=== PATIENT | female | born 1995 | race Hispanic/Latino ===

== ENCOUNTER 2020-04-28 22:52 | Emergency (ER) | payer OTHER ==
--- OUTSIDE RECORDS SUMMARY | 2020-04-28 23:08 | XMS REPORT | Summary of Care ---
:1995 Author Organization [facility] Address [address] [place] [id number] Care Team Providers Name Role Phone Stephen Gonzalez Primary Care Provider Allyson rFanco MD Insurance Hmo Reason for Visit Reason Comments New OB Visit Encounter Details Date Type Department Care Team Description [facility] upervision of high risk , antepartum (Primary Dx); Visit [place] [facility] Short interval between pregnancies affec ting in first trimester, antepartum; [address] [place] [address] History of pre-eclampsia in prior , currently in first trimester; [place], [place] Previous delivery affecting pre gnancy, antepartum; [address] [place], [place]; [phone] Overweight (BMI 25.0-29.9); [phone] BMI 27.0-27.9,adult Allergies No Known Allergiesdocumented as of this encounter (statuses as of 03/26/2020) Medications Medication Sig Dispensed Refills Start Date End Date Status levonorgestrel-ethi Take 1 tablet 1 Package 2 12/31/2019 Active nyl estradiol by mouth (SRONYX) 0.1-20 daily. mg-mcg per tabletIndications: Other general counseling and advice for contraceptive management vit Take 1 Packet 30 Each 6 03/26/2020 Ac tive 65-qaah-hnkhp-dha by mouth (SELECT-OB + DHA) daily. 29 mg iron-1 mg -250 mg combo packIndications: Supervision of high risk , antepartum vitamin Take 1 tablet 100 tablet 3 11/03/2019 020 Discontinued w/FA by mouth tabletIndications: daily. S/P docusate calcium Take 1 60 capsule 1 11/03/2019 03/26/2020 Discontinued 240 mg capsule by capsuleIndications: mouth once S/P daily as needed for Constipation. ferrous sulfate 325 Take 1 tablet 60 tablet 2 11/03/201903/26 Discontinued mg (65 mg iron) by mouth 2 tabletIndications: (two) times S/P daily. ibuprofen 600 mg Take 1 tablet 60 tablet 1 11/03/2019 03/26/20 20 Discontinued tabletIndications: by mouth S/P every 6 (six) hours as needed (Pain). Take with food or milk. norethindrone 0.35 Take 1 tablet 3 Package 0 11/03/20192019 Discontinued mg by mouth tabletIndications: daily. S/P HYDROcodone-acetami Take 1 tablet 20 tablet 0 11/03/201903/26 Discontinued nophen 5-325 mg by mouth tabletIndications: every 6 (six) S/P hours as needed (Pain scale above 4) for up to 20 doses. documented as of this encounter (statuses as of 03/26/2020) Active Problems Problem Noted Date Short interval between pregnancies affecting in first trimester, 03/26/2020 antepartum History of pre-eclampsia in prior , currently in first 03/26/2020 trimester Previous delivery affecting , antepa rtum 03/26/2020 [place] 03/26/2020 Well woman exam 12/31/2019 Other general counseling and advice for contraceptive management 12/31/2019 Elevated blood pressure reading without diagnosis of h ypertension 10/23/2019 BMI 27.0-27.9,adult 10/19/2019 Supervision of high risk , antepartum 019 Estimated Date of Delivery Comments Yes 11/06/2020 Based on last menstr ual period of 01/31/2020 (Approximate) documented as of this encounter (statuses as of 03/26/2020) Resolved Problems Problem Noted Date Resolved Date Routine follow-up 12/10/2019 12/31/2019 Pre-eclampsia in period 11/12/201912/10 38 weeks gestation of 11/01/2019 12/10/19 20 Nausea and vomiting during prior to 22 weeks 05/1512/10/2019 gestation Primigravida in third trimester 04/17/2019 12/10/19 20 Vaginal bleeding during 03/28/20192019 Susceptible to varicella (non-immune), currently 03/20/2019 Overview: Address pp Supervision of high-risk 08/07/201803/20 Vaginal bleeding in 08/07/2018 03/20/2019 OCP (oral contraceptive pills) initiation 12/30/2014 08/07/2018 Dysmenorrhea 12/30/2014 03/20/2019 Need for vaccination against human papillomavirus 12/30/2014 08/07/2018 Pain pelvic 12/30/2014 03/20/2019 Encounter for routine gynecological examination 12/27/2014 08/07/2018 Overview: ICD10 Diagnosis Term 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 [employer]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 Utility documented as of this encounter (statuses as of 03/26/2020) Immunizations Name Administration Dates Next Due HEPATITIS A 04/16/2008, 02/23/2006 HPV 12/27/2014, 11/04/2009, 09/04/2009 Influenza Virus Vaccine Quad .5 mL IM 6+ 09/05/2019 MO MMR 04/16/2008 Meningococcal Polysaccharide (groups A, 04/16/2008 C, Y and W-135) conjugate vaccine (MCV4P) Tdap 09/05/2019, 09/04/2009 Varicella (varivax)(chicken pox) 04/16/2008 documented as of this encounter Social History Tobacco Use Types Packs/Day Years Used Date Never Smoker Smokeless Tobacco: Never Used Comments: denies smoke exposure Alcohol Use Drinks/Week oz/Week Comments No Estimated Date of Delivery Comments Yes 11/06/2020 Based on last menstr ual period of 01/31/2020 (Approximate) Sex Assigned at Date Recorded Not on file Job Start Date Occupation Industry Not on file Not on file Not on file Travel History Travel Start Travel End No recent travel history available. COVID-19 Exposure Response Date Recorded In the last month, have you been in contact with No / Unsure 03/26/2020 1:21 PM CDT someone who was confirmed or suspected to have Coronavirus / COVID-19? documented as of this encounter Last Filed Vital Signs Vital Sign Reading Time Taken Comments Blood Pressure 130/87 03/26/2020 1:23 PM CDT Pulse 84 03/26/2020 1:23 PM CDT Temperature 37 C (98.6 F) 03/26/2020 1:23 PM CDT Respiratory Rate 16 03/26/2020 1:23 PM CDT Oxygen Saturation - - Inhaled Oxygen Concentration - - Weight 65.9 kg (145 lb 4 oz) 03/26/2020 1:23 PM CDT Height 154.9 cm (5' 1") 03/26/2020 1:23 PM CDT Body Mass Index 27.44 03/26/2020 1:23 PM CDT documented in this encounter Progress Notes Dawn Gonzalez, MAITE - 03/26/2020 1:15 PM CDT Chief complaint: Chief Complaint Patient presents with New OB Visit HPI CC: Initial Visit Sarah Stephen is a 24 year old, , /White female. Patient's last menstrual period was 01/31/2020 (approximate). She is 7w6d with an intrauterine . Her Estimated Date of Delivery: 11/06/20. She is being seen today for her first obstetrical visit. Patient denies any complaints. She denies FM, contractions, LOF and bleeding today.Patient denies current or past physical, sexual or emotional abuse. OB History Para Term AB Living 3 1 1 1 1 SAB TAB Ectopic Multiple Live Births 1 0 1 # Outcome Date GA Lbr Sancho/2nd Weight Sex Delivery Anes PTL Lv 3 Current 2 Term 11/01/19 38w0d 5 lb 14.7 oz (2.685 kg) F , L Spinal N JABARI Complications: Other (See Comments) 1 SAB 08/10/18 10w0d Histories OB History Para Term AB Living 3 1 1 1 1 SAB TAB Ectopic Multiple Live Births 1 0 1 # Outcome Date GA Lbr Sancho/2nd Weight Sex Delivery Anes PTL Lv 3 Current 2 Term 11/01/19 38w0d 5 lb 14.7 oz (2.685 kg) F , L Spinal N JABARI Complications: Other (See Comments) 1 SAB 08/10/18 10w0d Past Medical History: Diagnosis Date Dysmenorrhea 12/30/2014 Pre-eclampsia during in third trimester, antepartum 11/12/2019 Family History Problem Relation Age of Onset Hypertension Mother No Significant Medical Problems Sister No Significant Medical Problems Brother No Significant Medical Problems Maternal Grandmother No Significant Medical Problems Maternal Grandfather No Significant Medical Problems Paternal Grandmother No Significant Medical Problems Paternal Grandfather Arthritis NoFHx defects NoFHx Breast Cancer NoFHx Colon Cancer NoFHx Ovarian Cancer NoFHx Uterine Cancer NoFHx Cancer NoFHx Depression NoFHx Diabetes NoFHx Genetic NoFHx Heart NoFHx High cholesterol NoFHx Mental retardation NoFHx Neurological NoFHx Osteoporosis NoFHx Psychiatry NoFHx Other - see comments NoFHx Asthma NoFHx Family Status Relation Name Status Mo Alive Fa (Not Specified) unknown Sis Alive Bro Alive MGMo Alive MGFa Alive PGMo Alive PGFa Alive NoFHx (Not Specified) Past Surgical History: Procedure Laterality Date SECTION N/A 11/01/2019 Surgeon: Wen Schwarz MD; Location: Labor and Delivery - [place] Social History Socioeconomic History Marital status: Single Spouse name: Not on file Number of children: 0 Years of education: Not on file Highest education level: Not on file Occupational History Not on file Social Needs Financial resource strain: Not on file Food insecurity: Worry: Not on file Inability: Not on file Transportation needs: Medical: Not on file Non-medical: Not on file Tobacco Use Smoking status: Never Smoker Smokeless tobacco: Never Used Tobacco comment: denies smoke exposure Substance and Sexual Activity Alcohol use: No Drug use: No Sexual activity: Yes Partners: Male control/protection: None Comment: 03/11/2020 Lifestyle Physical activity: Days per week: Not on file Minutes per session: Not on file Stress: Not on file Relationships Social connections: Talks on phone: Not on file Gets together: Not on file Attends faith service: Not on file Active member of club or organization: Not on file Attends meetings of clubs or organizations: Not on file Relationship status: Not on file Intimate partner violence: Fear of current or ex partner: Not on file Emotionally abused: Not on file Physically abused: Not on file Forced sexual activity: Not on file Other Topics Concern Service Not Asked Blood Transfusions No Caffeine Concern Not Asked Occupational Exposure Not Asked Hobby Hazards Not Asked Sleep Concern Not Asked Stress Concern Not Asked Weight Concern Not Asked Special Diet Not Asked Back Care Not Asked Exercise Not Asked Bike Helmet Not Asked Seat Belt Not Asked Self-Exams Not Asked Social History Narrative No domestic violence or abuse Patient lives with spouse and mother- in -law and baby. Has one inside dog on occasion. Muslim preference Islam. Social History Substance and Sexual Activity Sexual Activity Yes Partners: Male control/protection: None Comment: 03/11/2020 Genetic Screen Autism / Mental Retardation: No Aden Disease: No Congenital Heart Defect: No Cystic Fibrosis: No Down Syndrome: No Familial Dysautonomia: No Hemophilia or other Blood Disorders: No [place] Chorea: No Maternal Metabolic Disorder--specify (eg. Type 1 Diabetes, PKU): No Muscular Dystrophy: No Neural Tube Defect: No Recurrent Loss or a Stillbirth: No Sickle Cell Disease or Trait: No Elijah Sachs: No Teratological Substances (specify type & strength/dose) since LMP: No Thalassemia: No Other Inherited Genetic or Chromosomal Disorder (specify): No No Significant History of Genetic Disorders: No Significant History of Genetic Disorders Labs Labs are pending. Radiology No new radiology. Allergies Sarah has No Known Allergies. Medications Sarah has a current medication list which includes the following prescription(s): vit 11-gusr-rebbu-dha and levonorgestrel-ethinyl estradiol. Review of Systems Constitutional: Negative for activity change, appetite change, fatigue, unexpected weight change, weight gain and weight loss. HENT: Negative for sore throat. Eyes: Negative for visual disturbance. Respiratory: Negative for cough and shortness of breath. Breasts: Negative for discharge, mass, pain and unequal size. Cardiovascular: Negative for chest pain, palpitations and leg swelling. Gastrointestinal: Negative. Negative for abdominal pain, anal bleeding, blood in stool, constipation, diarrhea, nausea, rectal pain and vomiting. Genitourinary: Negative for bladder incontinence, dysuria, urgency, flank pain, vaginal bleeding, vaginal discharge, genital sores, vaginal pain and pelvic pain. Skin: Negative for color change and rash. Neurological: Negative. Negative for dizziness, syncope and headaches. Psychiatric/Behavioral: Negative for confusion, self-injury and sleep disturbance. The patient is not nervous/anxious. Hematological: Negative for cold intolerance and heat intolerance. Endocrine: Negative for hair loss, cold intolerance, heat intolerance, weight gain and weight loss. BP 130/87 (BP Location: Right arm, Patient Position: Sitting, BP CUFF SIZE: Adult Medium) | Pulse 84 | Temp 37 C (98.6 F) (Oral) | Resp 16 | Ht 5' 1" (1.549 m) | Wt 145 lb 4 oz (65.9 kg) | LMP 01/31/2020 (Approximate) | BMI 27.44 kg/m Pregravid BMI: 27.4 Physical Exam Vitals reviewed. Constitutional: She is oriented to person, place, and time. She appears well- developed, well-nourished and well-groomed. She has no deformities. Neck: No tenderness and no mass. No thyroid nodules and no thyromegaly palpated. Cardiovascular: Regular rate and rhythm. No murmur auscultated. Pulmonary/Chest: Breath sounds clear to auscultation. Normal inspiratory effort. Abdominal: Abdomen is soft. No mass palpated. No tenderness present. There is no guarding. Neuro/Psychiatric: She has a normal mood and affect. She is oriented to person, place, and time. Skin: Skin normal. No lesion and no rash present. Breast: Right breast exhibits no mass, no nipple discharge and no tenderness. Left breast exhibits no mass, no nipple discharge and no tenderness. Normal left breast and normal right breast Rectal: normal rectum External genitalia: Normal external genitalia appropriate for age. Normal hair distribution. No labial lesion. Vagina:Normal vagina. No lesion inspected. No abnormal vaginal discharge found. Cervix: Normal cervix. No lesion. No tenderness and no discharge present. Closed/50/-3 Uterus: Uterus is normal size and non-tender. 6cm Normal uterus Adnexa: Right adnexa without tenderness or mass. Left adnexa without tenderness or mass. Normal leftadnexa and normal right adnexa Anus/perineum: Normal perineum. PHYSICAL: General Exam: HEENT: Normal Thyroid: Normal Lymph Node: Normal Neurological: Normal Abdomen: Normal Skin: Normal Extremities: Normal Pelvic Exam: Vulva: Normal Vagina: Normal Cervix: Normal Closed/50/-3 Uterus: 6cm Weeks Adnexa: Normal Spines: Average Sacrum: Concave Subpubic Arch: Normal Assessment/Plan Supervision of high risk , antepartum (primary encounter diagnosis) Short interval between pregnancies affecting in first trimester, antepartum History of pre-eclampsia in prior , currently in first trimester Previous delivery affecting , antepartum [place] Comment: Routine Visit Plan: POCT URINALYSIS W SPECIFIC GRAVITY, POCT TEST, POCT URINALYSIS W SPECIFIC GRAVITY, GLUCOSE 1 HOUR POST PRANDIAL, CBC WITH DIFF, GC & CHLAMYDIA AMPLIFIED ASSAY, HEPATITIS B SURFACE ANTIGEN, HIV 1/2 AG-AB WITH REFLEX, POCT URINALYSIS W SPECIFIC GRAVITY, WORKUP, BLOOD BANK, RUBELLA SCREEN (VERONICA) IGG, GALV ONLY - SYPHILIS IGG/IGM, URINE CULTURE, VZV ANTIBODY SCREEN, vit 84-qkrz-obkpf-dha (SELECT-OB + DHA) 29 mg iron-1 mg -250 mg combo pack, WORKUP, BLOOD BANK, CBC WITH DIFF, GC & CHLAMYDIA AMPLIFIED ASSAY, HEPATITIS B SURFACE ANTIGEN, HIV 1/2 AG-AB WITH REFLEX, RUBELLA SCREEN (VERONICA) IGG, GALV ONLY - SYPHILIS IGG/IGM, URINE CULTURE, VZV ANTIBODY SCREEN, CBC WITH DIFFERENTIAL Denies zika virus risk, signs and symptoms such as fever,rash,joint pain, conjunctivitis (red eyes), muscle pain, headaches; outside [place] travel to areas affected by zika, and FOB exposure to zika.Educated on use of mosquito repellent. Overweight (BMI 25.0-29.9) BMI 27.0-27.9,adult Comment: BMI: 27.44 Plan: Patient encouraged to limit weight gain and advised to eat healthy diet, fruits, vegetables, increased fiber and water intake and protein low in fat. Encouraged exercise for 30 min everyday; begin regimen with caution to prevent injury. Encouraged to decrease BMI to <25. Return to clinic in 4 weeks via tele health. Discussed treatment options. Medications as ordered. Reviewed patient instructions and provided printed copy. This visit did not involve counseling and coordination that comprised more than 50% of the visit time. MAITE Penny 03/26/2020 2:30 PM Myesha Bhakta RN - 03/26/2020 1:15 PM CDTPatient is 24 year old female here for current . Patient is . 1) Previous delivery methods: 2) Patient is not experiencing cramping 3) Patient is not experiencing bleeding. 4) LMP 01/31/2020 5) Last Pap was: 08/07/2018 Results: Negative 6) Have you had a flu vaccine this season? NO 7) PPD candidate? no 8) Patient denies any complaints 9) Patient denies history of physical, emotional, or sexual abuse. Patient states she currently feels safe at home. New ob packet given and discussed with patient. MYESHA BHAKTA RN 03/26/2020 1:47 PM documented in this encounter Plan of Treatment Date Type Specialty Care Team Description 04/24/2020 Telemedicine Visit [facility] Deonte Gonzalez nanettea R, RESIDENTIAL CAREGIVER [address] [address] [phone] Name Type Priority Associated Diagnoses Date/Ti me GC & CHLAMYDIA LAB Routine Supervision of high risk 0 03/26/2020 2:12 PM CDT AMPLIFIED ASSAY , antepartum URINE CULTURE LAB Routine Supervision of high risk 2:12 PM CDT , antepartum Name Type Priority Associated Diagnoses Order S chedule POCT URINALYSIS W LAB Routine Supervision of high 20 Occurrences starting SPECIFIC GRAVITY risk , 03/26/20 20 until antepartum 01/20/2021, 1 c ompleted GLUCOSE 1 HOUR POST LAB Routine Supervision of high O rdered: 03/26/2020 PRANDIAL risk , antepartum CBC WITH DIFF LAB Routine Supervision of high Expecte d: 03/26/2020, risk , Expires: antepartum GC & CHLAMYDIA AMPLIFIED LAB Routine Supervision of h igh Expected: 03/26/2020, ASSAY risk , Expires: antepartum HEPATITIS B SURFACE LAB Routine Supervision of high E xpected: 03/26/2020, ANTIGEN risk , Expires: antepartum HIV 1/2 AG-AB WITH REFLEX LAB Routine Supervision of high Expected: 03/26/2020, risk , Expires: antepartum POCT URINALYSIS W LAB Routine Supervision of high 20 Occurrences starting SPECIFIC GRAVITY risk , 03/26/20 20 until antepartum 01/20/2021 WORKUP, BLOOD LAB Routine Supervision of [facility] Expected: 03/26/2020, BANK risk , Expires: antepartum RUBELLA SCREEN (VERONICA) LAB Routine Supervision of [facility] h Expected: 03/26/2020, IGG risk , Expires: antepartum GALV ONLY - SYPHILIS LAB Routine Supervision of high Expected: 03/26/2020, IGG/IGM risk , Expires: antepartum URINE CULTURE LAB Routine Supervision of high Expecte d: 03/26/2020, risk , Expires: antepartum VZV ANTIBODY SCREEN LAB Routine Supervision of high E xpected: 03/26/2020, risk , Expires: antepartum CBC WITH DIFFERENTIAL LAB Routine Supervision of high Ordered: 03/26/2020 risk , antepartum Health Maintenance Due Date Last Done Comments MENINGOCOCCAL B VACCINES (1 12/09/2020 Post poned from of 2 - Risk Bexsero 2-dose 07/13 ( or series) ) VARICELLA VACCINES (2 of 2 12/10/2020 04/16/2008 Postp oned from - 2-dose childhood series) 07/09 ( or ) CHLAMYDIA SCREENING 12/31/2020 12/31/2019, 10/23/2019, 03/20/2019, Additional history exists PAP SMEAR 08/07/2021 08/07/2018 DTaP,Tdap,and Td Vaccines 09/05/2029 09/05/2019, 09/04/2009 (3 - Td) HPV VACCINES Completed 12/27/2014, 11/04/2009, 09/04/2009 INFLUENZA VACCINE Completed 09/05/2019 PNEUMOCOCCAL 0-64 YEARS Aged Out No longe r eligible COMBINED SERIES based on patient 's age to complete this topic documented as of this encounter Procedures Procedure Name Priority Date/Time Associated Diagnosis Comme nts POCT URINALYSIS Routine 03/26/2020 1:36 Supervision of high R esults for this PM CDT risk , procedure ar e in antepartum the results section. POCT TEST Routine 03/26/2020 1:35 Supervision of [facility] Results for this PM CDT risk , procedure ar e in antepartum the results section. documented in this encounter Results POCT URINALYSIS W SPECIFIC GRAVITY (03/26/2020 1:36 PM CDT) Pathologist Sig nature POCT U SP GRAV . 1.005 - 1.025 mg/dl POCT PH U 8 5 - 8 mg/dl POCT U LEUK EST NEGATIVE Negative - Negative POCT U NIT NEGATIVE Negative - Negative POCT U PROT TRACE Negative - Negative POCT U GLU NEGATIVE Negative - Negative POCT U KETONE NEGATIVE Negative - Negative POCT U UROBILI . 0.2 - 1 mg/dl POCT U BILI . Negative - Negative POCT U BLD NEGATIVE Negative - Negative POCT U COLOR POCT U APPEAR Specimen Urine - URINE, CLEAN CATCH POCT TEST (03/26/2020 1:35 PM CDT) Pathologist Sig nature POCT PREG Positive On board controls acceptable Yes with C Line POCT PREG LOT # POCT PREG TEST DATE Specimen Urine - URINE, CLEAN CATCH documented in this encounter Visit Diagnoses Diagnosis Supervision of high risk , ante - Primary Short interval between pregnancies affec ting in first trimester, antepartum History of pre-eclampsia in prior pregna ncy, currently in first trimester Previous delivery affecting pre gnancy, antepartum Previous delivery, antepartum c ondition or complication Multiparity Overweight (BMI 25.0-29.9) Overweight BMI 27.0-27.9,adult Body Mass Index 27.0-27.9, adult documented in this encounter Insurance Payer Benefit Plan / Subscriber ID Effective Phone Address T e Group Dates MEDICAID MEDICAID PENDING [id number] [place] [address] documented as of this encounter Advance Directives Name Relationship Healthcare Agent Relationship Co mmunication Renea Stephen Mother Primary healthcare agent [email or web address]
--- OUTSIDE RECORDS SUMMARY | 2020-04-28 23:08 | XMS REPORT | Continuity of Care Document ---
:1995 Author Organization [facility] t Address [address] [place] [address] Care Team Providers Name Role Phone Tay Rivas MD Attending Clinician Stephen Sher Attending Clinician Payers Payer Name Policy Type Policy Number Effective Date Expiration Date S ource Problems This patient has no known problems. Allergies, Adverse Reactions, Alerts Allergy Allergy Status Severity Reaction(s) Onset Inactive Treating Comm ents Source Name Type Date Date Clinician No Known DA Active [facility] 07-25 [facility] Medications This patient has no known medications. Procedures This patient has no known procedures. Encounters Start End Encounter Admission Attending Care Care Encounter Source Date/Time Date/Time Type Type Clinicians Facility Department ID 2020-04-23 2020-04-23 Emergency Evelyn, TRAUMA [id number] 01:21:46 05:33:00 Sinan Cross [place] [id number] 2020-03-26 2020-03-26 MARY Justin [id number] 13:15:55 14:10:06 Roshunda R METAL FURNITURE REPAIRER [id number] Visit REGIONAL [id number] MATERNAL [id number] & CHILD [address] [place] [address] - [place] Results This patient has no known results.
--- OUTSIDE RECORDS SUMMARY | 2020-04-28 23:09 | XMS REPORT | Summary of Care ---
:1995 Author Organization [facility] - Health Address [address] [place], [place] [id number] Care Team Providers Name Role Phone Stephen Gonzalez Primary Care Provider Allyson Franco MD Insurance Hmo Encounter Details Date Type Department Care Team Description 03/26/2020 Orders Only [facility] Doctor Unassigned, No [address] [place] [facility] [place] [address] [address] [place] [address] Allergies No Known Allergiesdocumented as of this encounter (statuses as of 03/26/2020) Medications Medication Sig Dispensed Refills Start Date End Date Status levonorgestrel-ethinyl Take 1 tablet by 1 Package 2 12/31/2019 Active estradiol (SRONYX) mouth daily. 0.1-20 mg-mcg per tabletIndications: Other general counseling and advice for contraceptive management vit Take 1 Packet by 30 Each 6 03/26/2020 Active 46-stgj-dyjdt-dha mouth daily. 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 documented as of this encounter (statuses [...] of this encounter Last Filed Vital Signs Not on filedocumented in this encounter Plan of Treatment Date Type Specialty Care Team Description 04/24/2020 Telemedicine Visit OB Elviss Deonte Gonzalez R, DIGITAL MEDIA COORDINATOR [address] [employer], [place] [address] [phone] Health Maintenance Due Date Last Done Comments [...] Name Priority Date/Time Associated Diagnosis Comme nts REPORT OF Routine 03/26/2020 12:01 AM CDT documented in this encounter Results Not on filedocumented in this encounter Insurance Payer Benefit Plan Subscriber ID Effective Phone Address Typ e / Group Dates MEDICAID MEDICAID PENDING 2020-[address] P [place] [address] [id number] xxxxxxxxx 2014-Pres [phone] [address] 555 Medicaid ent [address] [place] [address] documented as of this encounter Advance Directives Name Relationship Healthcare Agent Relationship Co mmunication Renea Stephen Mother Primary healthcare agent [email or web address]
--- OUTSIDE RECORDS SUMMARY | 2020-04-28 23:09 | XMS REPORT | Summary of Care ---
:1995 Author Organization [facility] Address [address] [place] [id number] Care Team Providers Name Role Phone Stephen Gonzalez Primary Care Provider Allyson Franco MD Insurance Hmo Reason for Visit Reason Comments New OB Visit Encounter Details Date Type Department Care Team Description 03/26/2020 [facility] upervision of high risk , antepartum (Primary Dx); Visit [place] [facility] Short interval between pregnancies affec ting in first trimester, antepartum; [address] History of pre-eclampsia in prior , currently in first trimester; [place], [place] [place] Previous delivery affecting pre gnancy, antepartum; [address] [place], [place]; [phone] [address] Overweight (BMI 25.0-29.9); [phone] BMI 27.0-27.9,adult Allergies No Known Allergiesdocumented as of this encounter (statuses as of 03/26/2020) Medications Medication Sig Dispensed Refills Start Date End Date Status levonorgestrel-ethi Take 1 tablet 1 Package 2 12/31/2019 Active nyl estradiol by mouth (SRONYX) 0.1-20 daily. mg-mcg per tabletIndications: Other general counseling and advice for contraceptive management vit Take 1 Packet 30 Each 6 03/26/2020 Ac tive 37-tmri-dbjic-dha by mouth (SELECT-OB + DHA) daily. 29 [...] examination 12/27/2014 08/07/2018 Overview: ICD10 Diagnosis Term Epic Analyst Utility documented as of this encounter (statuses [...] Schwarz MD; Location: Labor and Delivery - [place] Social History Socioeconomic History Marital status: Single [...] file Gets together: Not on file Attends islam service: Not on file Active member of [...] baby. Has one inside dog on occasion. [employer] preference [employer]. Social History Substance and Sexual Activity Sexual Activity Yes Partners: Male control/protection: None Comment: 03/11/2020 Genetic Screen Autism / Mental Retardation: No Aden Disease: No Congenital Heart Defect: No Cystic Fibrosis: No Down Syndrome: No Familial Dysautonomia: No Hemophilia or other Blood Disorders: No [place] Chorea: No Maternal Metabolic Disorder--specify (eg. Type [...] list which includes the following prescription(s): vit 92-dpkj-roeyi-dha and levonorgestrel-ethinyl estradiol. Review of Systems Constitutional: [...] IGG/IGM, URINE CULTURE, VZV ANTIBODY SCREEN, vit 62-pmai-zimad-dha (SELECT-OB + DHA) 29 mg iron-1 mg [...] Visit OB [facility] Deonte Gonzalez nanettea R, STORE TEAM LEADER [address] [place] [address] [phone] Name Type Priority Associated Diagnoses Date/Ti me [...] 01/20/2021 WORKUP, BLOOD LAB Routine Supervision of [facility] h Expected: 03/26/2020, BANK risk , Expires: antepartum RUBELLA SCREEN ([place]) LAB Routine Supervision of [facility] h Expected: 03/26/2020, IGG risk , Expires: [...] POCT TEST Routine 03/26/2020 1:35 Supervision of [facility] Results for this PM CDT risk , [...] T e Group Dates MEDICAID MEDICAID PENDING 2020-[address] P[place] [address] documented as of this encounter Advance Directives Name Relationship Healthcare Agent Relationship Co mmunication Renea Stephen Mother Primary healthcare agent earl
--- OUTSIDE RECORDS SUMMARY | 2020-04-28 23:10 | XMS REPORT | Summary of Care ---
:1995 Author Organization [facility] Address [address] [place] [address] Care Team Providers Name Role Phone Stephen Gonzalez Primary Care Provider Allyson Franco MD Insurance Hmo Reason for Visit Reason Comments New OB Visit Encounter Details Date Type Department Care Team Description [facility] upervision of high risk , antepartum (Primary Dx); Visit [place] [facility] Short interval between pregnancies affec ting in first trimester, antepartum; [address] History of pre-eclampsia in prior , currently in first trimester; [place], [place] [address] Previous delivery affecting pre gnancy, antepartum; [address] [place], [place]; [phone] Overweight (BMI 25.0-29.9); [phone] BMI 27.0-27.9,adult Allergies No Known Allergiesdocumented as of this encounter (statuses as of 03/26/2020) Medications Medication Sig Dispensed Refills Start Date End Date Status levonorgestrel-ethi Take 1 tablet 1 Package 2 12/31/2019 Active nyl estradiol by mouth (SRONYX) 0.1-20 daily. mg-mcg per tabletIndications: Other general counseling and advice for contraceptive management vit Take 1 Packet 30 Each 6 03/26/2020 Ac tive 51-vvhs-qdjzf-dha by mouth (SELECT-OB + DHA) daily. 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 Has one inside dog on occasion. Gnosticist preference [employer]. Social History Substance and Sexual Activity Sexual Activity Yes Partners: Male control/protection: None Comment: 03/11/2020 Genetic Screen Autism / Mental Retardation: No Aden Disease: No Congenital Heart Defect: No Cystic Fibrosis: No Down Syndrome: No Familial Dysautonomia: No Hemophilia or other Blood Disorders: No [place] Chorea: No Maternal Metabolic Disorder--specify (eg. Type [...] list which includes the following prescription(s): vit 56-ykvu-zkanb-dha and levonorgestrel-ethinyl estradiol. Review of Systems Constitutional: [...] IGG/IGM, URINE CULTURE, VZV ANTIBODY SCREEN, vit 86-hzls-dyxaj-dha (SELECT-OB + DHA) 29 mg iron-1 mg [...] 04/24/2020 Telemedicine Visit [facility] Deonte Gonzalez neftali R, STOCKROOM INVENTORY CLERK [address] [address] [phone] Name Type Priority Associated Diagnoses Date/Ti me GLUCOSE 1 HOUR POST LAB Routine Supervision of high r isk 03/26/2020 2:41 PM PRANDIAL , antepartum CDT CBC WITH DIFF LAB Routine Supervision of high risk 2:41 PM , antepartum CDT GC & CHLAMYDIA AMPLIFIED LAB Routine Supervision of h igh risk 03/26/2020 2:12 PM ASSAY , antepartum CDT HEPATITIS B SURFACE LAB Routine Supervision of high r isk 03/26/2020 2:41 PM ANTIGEN , antepartum CDT HIV 1/2 AG-AB WITH REFLEX LAB Routine Supervision of high risk 03/26/2020 2:41 PM , antepartum CDT RUBELLA SCREEN ([place]) LAB Routine Supervision of hig h risk 03/26/2020 2:41 PM IGG , antepartum CDT GALV ONLY - SYPHILIS LAB Routine Supervision of high risk 03/26/2020 2:41 PM IGG/IGM , antepartum CDT URINE CULTURE LAB Routine Supervision of high risk 2:12 PM , antepartum CDT VZV ANTIBODY SCREEN LAB Routine Supervision of high r isk 03/26/2020 2:41 PM , antepartum CDT CBC WITH DIFFERENTIAL LAB Routine Supervision of high risk 03/26/2020 2:41 PM , antepartum CDT Name Type Priority Associated Diagnoses Order S chedule POCT URINALYSIS W LAB Routine Supervision of high ris k 20 Occurrences starting SPECIFIC GRAVITY , antepartum until 01/20/2021, 1 c ompleted CBC WITH DIFF LAB Routine Supervision of high risk Ex pected: 03/26/2020, , antepartum s: 03/26/2021 GC & CHLAMYDIA LAB Routine Supervision of high risk E xpected: 03/26/2020, AMPLIFIED ASSAY , antepartum Exp ires: 03/26/2021 HEPATITIS B SURFACE LAB Routine Supervision of high r isk Expected: 03/26/2020, ANTIGEN , antepartum s: 03/26/2021 HIV 1/2 AG-AB WITH LAB Routine Supervision of high ri sk Expected: 03/26/2020, REFLEX , antepartum s: 03/26/2021 POCT URINALYSIS W LAB Routine Supervision of high ris k 20 Occurrences starting SPECIFIC GRAVITY , antepartum until 01/20/2021 WORKUP, BLOOD LAB Routine Supervision of hig h risk Expected: 03/26/2020, BANK , antepartum s: 03/26/2021 RUBELLA SCREEN ([place]) LAB Routine Supervision of hig h risk Expected: 03/26/2020, IGG , antepartum s: 03/26/2021 GALV ONLY - SYPHILIS LAB Routine Supervision of high risk Expected: 03/26/2020, IGG/IGM , antepartum s: 03/26/2021 URINE CULTURE LAB Routine Supervision of high risk Ex pected: 03/26/2020, , antepartum s: 03/26/2021 VZV ANTIBODY SCREEN LAB Routine Supervision of high r isk Expected: 03/26/2020, , antepartum s: 03/26/2021 Health Maintenance Due Date Last Done Comments [...] POCT TEST Routine 03/26/2020 1:35 Supervision of hi gh Results for this PM CDT risk , [...] / Subscriber ID Effective Phone Address T ype Group Dates MEDICAID MEDICAID PENDING 2020-[address] Pending [place] [address] documented as of this encounter Advance Directives Name Relationship Healthcare Agent Relationship Co mmunication Renea Stephen Mother Primary healthcare agent earl
--- OUTSIDE RECORDS SUMMARY | 2020-04-28 23:10 | XMS REPORT | Summary of Care ---
:[address] [facility] Address [address] [place], [place] [id number] Care Team Providers Name Role Phone Stephen Gonzalez Primary Care Provider Allyson Franco MD Insurance Hmo Reason for Referral (PAWAN) Status Reason Specialty Diagnoses / Referred By Referred To Procedures Contact Contact New Request Maternal Diagnoses Vaginal bleeding in , first trimester Sinan Rivas Medicine Procedures CONSULT MATERNAL MEDICINE ULTRASOUND Preferred Location: [facility]UEL[facility] [address] [place], [place] [address] Radiology Services (STAT) Status Reason Specialty Diagnoses / Referred By Referred To Procedures Contact Contact New Request Diagnostic Diagnoses Vaginal bleeding in , first trimester Foss, Nikki Radiology Procedures US FIRST TRIMESTER LESS THAN 14 WEEKS WITH TRANSVAGINAL R, EMNP [address] [place], [place] [address] Reason for Visit Reason Comments Abdominal Pain Back Pain Vaginal Bleeding Auth/Cert Status Reason Specialty Diagnoses / Referred By Referred To Procedures Contact Contact Emergency Medicine [facility] [address] [place] [phone] Fax: Encounter Details Date Type Department Care Team Description 04/23/2020 Emergency [facility] Sinan Rivas MD Vaginal bleeding in [address] [place] [address] , fi rst [place] [id number] trimester (Primary Dx) [place], [place] [address] [phone] Allergies No Known Allergiesdocumented as of this encounter (statuses as of 04/23/2020) Medications Medication Sig Dispensed Refills Start Date End Date Status vit Take 1 Packet 30 Each 6 03/26/2020 Ac tive 44-cncz-felbl-dha by mouth (SELECT-OB + DHA) 29 daily. mg iron-1 mg -250 mg combo packIndications: Supervision of high risk , antepartum acetaminophen 325 mg Take 2 20 tablet 0 04/23/2020 Active tabletIndications: tablets by Vaginal bleeding in mouth every 6 , first (six) hours trimester as needed for Pain (scale 1-3). levonorgestrel-ethin Take 1 tablet 1 Package 2 12/31/201903/29 Discontinued yl estradiol by mouth (SRONYX) 0.1-20 daily. mg-mcg per tabletIndications: Other general counseling and advice for contraceptive management documented as of this encounter (statuses as of 04/23/2020) Active Problems Problem Noted Date Short interval [...] Supervision of high risk , antepartum 019 Maternal varicella, non-immune 08/09/2018 Overview: Address pp Estimated Date of Delivery Comments Yes 12/12/2020 Based on Ultrasound documented as of this encounter (statuses as of 04/23/2020) Resolved Problems Problem Noted Date Resolved Date Routine follow-up 12/10/2019 12/31/2019 Pre-eclampsia in period 11/12/201912/10 38 weeks gestation of 11/01/2019 12/10/19 20 Nausea and vomiting during prior to 22 weeks 06/18 /2019 12/10/2019 gestation Primigravida in third trimester 04/17/2019 12/10/19 20 Vaginal bleeding during 03/28/20192019 Supervision of high-risk 08/07/201803/20 Vaginal bleeding in 08/07/2018 03/20/2019 OCP (oral contraceptive pills) initiation 12/30/2014 08/07/2018 Dysmenorrhea 12/30/2014 03/20/2019 Need for vaccination against human papillomavirus 12/30/2014 08/07/2018 Pain pelvic 12/30/2014 03/20/2019 Encounter for routine gynecological examination 12/27/2014 08/07/2018 Overview: ICD10 Diagnosis Term Youth Specialist Utility documented as of this encounter (statuses as of 04/23/2020) Immunizations Name Administration Dates Next Due HEPATITIS [...] No Estimated Date of Delivery Comments Yes 12/12/2020 Based on Ultrasound Sex Assigned at Date Recorded Not on file Job Start Date Occupation Industry Not on file Not on file Not on file Travel History Travel Start Travel End No recent travel history available. COVID-19 Exposure Response Date Recorded In the last month, have you been in contact with No / Unsure 04/23/2020 4:27 AM CDT someone who was confirmed or suspected to have Coronavirus / COVID-19? documented as of this encounter Last Filed Vital Signs Vital Sign Reading Time Taken Comments Blood Pressure 114/76 04/23/2020 5:21 AM CDT Pulse 81 04/23/2020 5:21 AM CDT Temperature 36.8 C (98.2 F) 04/23/2020 1:19 AM CDT Respiratory Rate 20 04/23/2020 5:21 AM CDT Oxygen Saturation 99% 04/23/2020 5:21 AM CDT Inhaled Oxygen Concentration - - Weight 68 kg (150 lb) 04/23/2020 1:19 AM CDT Height - - Body Mass Index 28.34 03/26/2020 1:23 PM CDT documented in this encounter Discharge Instructions Sinan Cortez MD - 04/23/2020 Your diagnosis is: Threatened Miscarriage Your treatments today included: Orders Placed This Encounter Procedures US FIRST TRIMESTER LESS THAN 14 WEEKS WITH TRANSVAGINAL CBC WITH DIFFERENTIAL COMP. METABOLIC PANEL (46810) URINALYSIS TOTAL BETA HCG ASSAY LIPASE CONSULT DESIGNER ARCHITECT Your prescriptions today are: None. Take Tylenol as needed for pain You will need to follow-up with [facility] in 2-3 day(s) for re-evaluation and repeat BHCG. Please call [facility] to schedule appointment. If you do not have a primary care provider, you will need to arrange for your own. If you need assistance with this, the discharge planners can help you identify resources appropriate for you. See further medical attention for: Severe pain, increased bleeding, fever, vomiting or inability to take/keep down fluids. AttachmentsThe following attachments cannot be sent through Care Everywhere. , Bleeding During Early (Romansh)Possible Miscarriage (Threatened ) (Romansh)documented in this encounter Plan of Treatment Date Type Specialty Care Team Description 04/24/2020 Telemedicine Visit [facility] Deonte Gonzalez R, [employer] [address] [address] [phone] Name Type Priority Associated Diagnoses Date/Ti me US FIRST IMAGING STAT Vaginal bleeding in 2:25 AM TRIMESTER LESS THAN 14 , first C DT WEEKS WITH TRANSVAGINAL trimester Name Type Priority Associated Diagnoses Order S chedule TOTAL BETA HCG ASSAY LAB Routine Vaginal bleeding in Expected: 04/23/2020, , first trimester E xpires: 05/21/2020 Health Maintenance Due Date Last Done Comments MENINGOCOCCAL B VACCINES (1 12/09/2020 Post poned from of 2 - Risk Bexsero 2-dose 07/13 ( or series) ) VARICELLA VACCINES (2 of 2 12/10/2020 04/16/2008 Postp oned from - 2-dose childhood series) 07/09 ( or ) CHLAMYDIA SCREENING 03/26/2021 03/26/2020, 12/31/2019, 10/23/2019, Additional history exists PAP SMEAR 08/07/2021 08/07/2018 DTaP,Tdap,and Td Vaccines 09/05/2029 09/05/2019, 09/04/2009 (3 - Td) HPV VACCINES Completed 12/27/2014, 11/04/2009, 09/04/2009 INFLUENZA VACCINE Completed 09/05/2019 PNEUMOCOCCAL 0-64 YEARS Aged Out No longe r eligible COMBINED SERIES based on patient 's age to complete this topic documented as of this encounter Procedures Procedure Name Priority Date/Time Associated Comments Diagnosis CBC WITH DIFFERENTIAL STAT 04/23/2020 2:41 Vaginal bleedin g in Results for this AM CDT , first procedure a re in trimester the results section. EXTRA TUBE LT. BLUE STAT 04/23/2020 2:41 AM CDT URINALYSIS STAT 04/23/2020 2:41 Vaginal bleeding in Resu lts for this AM CDT , first procedure a re in trimester the results section. TOTAL BETA HCG ASSAY STAT 04/23/2020 2:41 Vaginal bleeding in Results for this AM CDT , first procedure a re in trimester the results section. COMP. METABOLIC PANEL STAT 04/23/2020 2:41 Vaginal bleedin g in Results for this (20475) AM CDT , first procedure a re in trimester the results section. LIPASE STAT 04/23/2020 2:41 Vaginal bleeding in Resu lts for this AM CDT , first procedure a re in trimester the results section. US FIRST STAT 04/23/2020 2:25 Vaginal bleeding i n TRIMESTER LESS THAN AM CDT , first 14 WEEKS WITH trimester TRANSVAGINAL Procedure Note - [facility], Radia nt Results Inft User - 04/23/2020 2:33 AM CDT TRANSABDOMINAL AND TRANSVAGINAL PELVIC ULTRASOUND CLINICAL HISTORY: vaginal bl eeding FINDINGS: Transabdominal and transvagi nal pelvic ultrasounds were performed. An intrauterine gestational sac measures 24 x 15 x 16 mm (mean sac diameter 18 mm). A yolk sac measures 4 mm. No embryo is detected. Fluid is seen within the cervical canal. The right ovary is normal in size and echotexture. It measures 4.0 x 2.2 x 2.1 cm (9.5 mL). The left ov fidel is not visualized. IMPRESSION An intrauterine gestational sac is present with a mean sac diameter of 18 mm. No embryo is seen. These findings, along with fluid in the cervical canal, are concerning for, b ut not diagnostic of, failure. Follow-up beta-hCG and pelvi c ultrasound are recommended. Preliminary Report Dictated by Resident: Fco Krishnan documented in this encounter Results EXTRA TUBE LT. BLUE (04/23/2020 2:41 AM CDT) Specimen Blood Performing Organization Address City/[facility]/Zipcode Phone Number [facility] CLIA: [id number], [address] [place] [address] 555 [facility] LIPASE (04/23/2020 2:41 AM CDT) Pathologist [facility] [employer] LIPASE 179 0 - 220 U/L [facility] Specimen Blood - ARM, LEFT Performing Organization Address [facility] Phone Number [facility] CLIA: [id number], [address] [place] [address] 555 [facility] TOTAL BETA HCG ASSAY (04/23/2020 2:41 AM CDT) [facility] [employer] BETA HCG 6,666.60 Non- female [facility] EMMANUEL and male patients: <5 mIU/mL Specimen Blood - ARM, LEFT Narrative Performed At [facility] Gestational Age Rang e (mIU/mL) 1-10 Weeks 4 [id number] 11-15 Weeks 11 [phone] 16-22 Weeks 74 [phone] 23-40 Weeks 15 [phone] Biotin has been reported to cause a negative bias, int erpret results relative to patient's use of biotin. Performing Organization Address City/[facility] Phone Number [facility] CLIA: [id number], [address] [place] [address] 555 [facility] [place] URINALYSIS (04/23/2020 2:41 AM CDT) [facility] [employer] APPEARANCE Clear Clear [facility] COLOR Colorless (A) Yellow [facility] PH 7.0 4.8 - 8.[address] [facility] SP GRAVITY 1.003 1.003 - 1.[address] [facility] GLU U QUAL Normal Normal [facility] BLOOD 3+ (A) Negative [facility] KETONES Negative Negative [facility] PROTEIN Negative Negative [facility] UROBILIN Normal Normal [facility] BILIRUBIN Negative Negative [facility] NITRITE Negative Negative [facility] LEUK JUDI Negative Negative [facility] RBC/HPF 2 0 - [address] [facility] WBC/HPF <1 0 - [address] [facility] BACTERIA Negative Negative [facility] SQ EPITH 1 <=[address] [facility] Specimen Urine - URINE, CLEAN CATCH Performing Organization Address City/State/Zipcode Phone Number [facility] CLIA: [id number], [address] [place], [place] [address] [facility] COMP. METABOLIC PANEL (71880) (04/23/2020 2:41 AM CDT) NA 138 135 - [address] [facility] mmol/L SERVICES K 4.2Comment: 3.5 - 5.[address] [facility] Slight hemolysis mmol/L SERVICES CL 104 98 - [address] [facility] mmol/L SERVICES CO2 TOTAL 22 (L) 23 - [address] [facility] mmol/L SERVICES AGAP 12 2 - [address] [facility] BUN 12Comment: Slight 7 - 23 mg/dL [facility] hemolysis SERVICES GLUCOSE 115 (H) 70 - [address] [facility] mg/dL SERVICES CREATININE 0.44 (L) 0.50 - 1.[address] [facility] mg/dL SERVICES TOTAL BILI 0.5 0.1 - 1.[address] [facility] mg/dL SERVICES CALCIUM 9.9 8.6 - 10.[address] [facility] mg/dL SERVICES T PROTEIN 8.9 (H) 6.3 - 8.[address] [facility] g/dL SERVICES ALBUMIN 4.8 3.5 - 5.[address] [facility] g/dL SERVICES ALK PHOS 103Comment: 34 - 122 U/L [facility] Slight hemolysis SERVICES ALTv 19 5 - 35 U/L [facility] AST(SGOT) 35Comment: Slight 13 - 40 U/L [facility] hemolysis SERVICES eGFR Calculation 177.2 mL/min/1.73m2 [facility] (Non- SERVICES [place]) eGFR Calculation 214.8 mL/min/1.73m2 [facility] () SERVICES Specimen Blood - ARM, LEFT Narrative Performed At Association of Glomerular Filtration Rate (GFR) and St aging [facility] of Kidney Disease* + + +------- ------ + | GFR (mL/min/1.73 m2) | With Kidney Damage | Wi thout Kidney Damage + + +------- ------ + | >90 | Stage one | Normal + + +------- ------ + | 60-89 | Stage two | Decreased GFR + + +------- ------ + | 30-59 | Stage three | Stage three + + +------- ------ + | 15-29 | Stage four | Stage four + + +------- ------ + | <15 (or dialysis) | Stage five | Stage five + + +------- ------ + *Each stage assumes the associated GFR level has been in effect for at least three months. Stages 1 to 5, wit h or without kidney disease, indicate chronic kidney disease. Notes: Determination of stages one and two (with eGFR >59mL/min/1.73 m2) requires estimation of kidney damag e for at least three months as defined by structural or func tional abnormalities of the kidney, manifested by either: Pathological abnormalities or Markers of kidney damage (including abnormalities in the composition of the blo od or urine or abnormalities in imaging tests) . Performing Organization Address City/State/Zipcode Phone Number [facility] CLIA: [id number], [address] [place] [address] [facility] CBC WITH DIFFERENTIAL (04/23/2020 2:41 AM CDT) [facility] WBC 9.87 4.30 - 11.[address] [facility] 10*3/L SERVICES RBC 5.16 3.93 - 5.[address] [facility] 10*6/L SERVICES HGB 12.3 11.6 - 15.[address] [facility] g/dL SERVICES HCT 39.5 35.7 - 45.2 % [facility] MCV 76.6 (L) 80.6 - 95.[address] [facility] MCH 23.8 (L) 25.9 - 32.[address] [facility] MCHC 31.1 (L) 31.6 - 35.[address] [facility] g/dL SERVICES RDW-SD 49.3 39.0 - 49.[address] [facility] RDW-CV 18.2 (H) 12.0 - 15.5 % [facility] PLT 287 166 - 358 [facility] 10*3/L SERVICES MPV 10.6 9.5 - 12.9 fL [facility] NRBC/100 WBC 0.0 0.0 - 10.0 /100 [facility] WBCs SERVICES NRBC x10^3 <0.01 10*3/L [facility] GRAN MAT (NEUT) % 65.2 % [facility] IMM GRAN % 0.30 % [facility] LYMPH % 26.6 % [facility] MONO % 6.9 % [facility] EOS % 0.6 % [facility] BASO % 0.4 % [facility] GRAN MAT x10^3(ANC) 6.43 1.88 - 7.09 [facility] 10*3/uL SERVICES IMM GRAN x10^3 0.03 0.00 - 0.06 [facility] 10*3/uL SERVICES LYMPH x10^3 2.63 1.32 - 3.29 [facility] 10*3/uL SERVICES MONO x10^3 0.68 0.33 - 0.92 [facility] 10*3/uL SERVICES EOS x10^3 0.06 0.03 - 0.39 [facility] 10*3/uL SERVICES BASO x10^3 0.04 0.01 - 0.07 [facility] 10*3/uL SERVICES Specimen Blood - ARM, LEFT Performing Organization Address City/State/Zipcode Phone Number [facility] CLIA: [id number], [address] [place], [place] [address] [facility] documented in this encounter Visit Diagnoses Diagnosis Vaginal bleeding in , first tri mester - Primary documented in this encounter Administered Medications Medication Order MAR Action Action Date Dose Rate Site acetaminophen (TYLENOL) tablet Given 04/23/2020 5:21 AM CDT 650 mg 650 mg 650 mg, Oral, ONCE, 1 dose, 04/23/20 at 0300, PAWAN documented in this encounter Insurance Payer Benefit Plan / Subscriber ID Effective Phone Address T ype Group Dates MEDICAID MEDICAID PENDING 2020-Pres [address] [place] [address] Pending [place] [address] documented as of this encounter Advance Directives Name Relationship Healthcare Agent Relationship Co mmunication Renea Stephen Mother Primary healthcare agent earl "
--- NOTE | 2020-04-28 23:31 | ER ---
Nurse's Notes [facility] Name: Sarah Stephen Age: 24 yrs Sex: Female : 1995 Arrival Date: 04/28/2020 Time: 22:53 Bed Waiting [facility] MD: Diagnosis: ED Course: 04/28 22:53 Patient arrived in ED. cf2 Administered Medications: No medications were administered Outcome: 23:31 Patient left the ED. 1 Signatures: Michelle Montoya cf2 Inna Leigh, RN RN ll1
== END 2020-04-28 23:31 | disposition left against medical advice (07) ==
LOC: ER 22:52
DX: Z53.21 Procedure and treatment not carried out due to patient leaving prior to being seen by health care provider (principal)